=== PATIENT | male | born 1955 | race Caucasian/White ===

== ENCOUNTER 2016-04-05 15:40 | Emergency (ER) | payer OTHER ==
[2016-04-06] MEDS ORDERED: KETOROLAC 30 MG/ML VIAL ONE (01:22)
== END 2016-04-05 17:22 | disposition home or self-care (01) ==
LOC: ER 15:40
DX: S91.301A Unspecified open wound, right foot, initial encounter (principal); L08.9 Local infection of the skin and subcutaneous tissue, unspecified; E11.9 Type 2 diabetes mellitus without complications; Z79.4 Long term (current) use of insulin; I10 Essential (primary) hypertension; Z79.82 Long term (current) use of aspirin